=== PATIENT | female | born 1995 | race African-American/Black ===

== ENCOUNTER 2017-07-18 17:44 | Emergency (ER) | payer OTHER ==
[~2017-07-18] VITALS: Ht 165.1 cm; Wt 49.9 kg
[2017-07-18 18:36] LABS: URINE BILIRUBIN NEGATIVE (Negative); URINE BLOOD NEGATIVE (Negative); URINE CLARITY CLEAR; URINE COLOR YELLOW; URINE GLUCOSE-RANDOM* NEGATIVE (Negative); URINE KETONES NEGATIVE (Negative); URINE LEUKOCYTES-REFLEX NEGATIVE (Negative); URINE NITRITE-REFLEX NEGATIVE (Negative); URINE PROTEIN (DIPSTICK) NEGATIVE (Negative); URINE SPECIFIC GRAVITY 1.025 (1.005-1.035); URINE UROBILINOGEN 0.2 E.U./dl (0.2-1.0)
[2017-07-18] MEDS ORDERED: ACYCLOVIR 400400 MG PO (18:54)
[2017-07-18 19:29] VITALS: BP 125/70
[2017-07-20 14:12] LABS: NEISSERIA GONORRHEA-PCR Negative (Negative)
== END 2017-07-18 19:34 | disposition home or self-care (01) ==
LOC: ER 17:44
PROVIDERS: Physician Assistant
DX: Z20.2 Contact with and (suspected) exposure to infections with a predominantly sexual mode of transmission (principal); K13.70 Unspecified lesions of oral mucosa